=== PATIENT | male | born 1970 | race Two or more races ===

== ENCOUNTER 2016-12-16 10:19 | Emergency (ER) | payer BC ==
[~2016-12-16] VITALS: Ht 180.3 cm; Wt 117.0 kg
[~2016-12-16 10:19] MED LIST: CLON1 PO; LORT5TAB PO; MELO15TA2 PO
[2016-12-16 10:23] VITALS: BP 139/80; PULSE 90; RESP 16; TEMP 98; O2SAT 95
--- NOTE | 2016-12-16 10:53 | PD ---
HPI Chief Complaint: Chest Pain Time Seen by Provider: 10:40 Travel History International Travel<30 days: No Contact w/Intl Traveler<30days: No Traveled to known affect area: No History of Present Illness HPI This patient complains of chest pain. Duration 2 days. Severity is moderate. Feels a pressure in the center of his chest. It is not exertional. He has no cardiac disease never been stress tested. He is a cigarette smoker. No alleviating factors. PFSH Past Medical History Hx Anticoagulant Therapy: No Anxiety: Yes Depression: Yes Diabetes: No Diminished Hearing: No Tetanus Vaccination: Unknown Past Surgical History Abdominal Surgery: Yes (COLOSTOMY PLACEMENT LAST DECEMBER 01, 2009) Social History Alcohol Use: Yes (SOC) Tobacco Use: Yes (07/25 PPD) Substance Use: Yes Allergies-Medications (Allergen,Severity, Reaction): Coded Allergies: Sulfa (Unverified Allergy, Unknown, Unknown, 12/16/16) Reported Meds & Prescriptions Reported Meds & Active Scripts Active No Active Prescriptions or Reported Medications Review of Systems General / Constitutional: No: Fever Eyes: No: Visual changes HENT: No: Headaches Cardiovascular: Positive: Chest Pain or Discomfort Respiratory: No: Shortness of Breath Gastrointestinal: No: Abdominal Pain Genitourinary: No: Dysuria Musculoskeletal: No: Pain Skin: No Rash Neurologic: No: Weakness Psychiatric: No: Depression Endocrine: No: Polydipsia Hematologic/Lymphatic: No: Easy Bruising Physical Exam Narrative GENERAL: Well-nourished, well-developed patient in no apparent distress. SKIN: Focused skin assessment reveals no rash and nodules. Skin is Warm and dry. HEAD: Atraumatic. Normocephalic. EYES: Pupils equal and round. No scleral icterus. No injection or drainage. ENT: No nasal bleeding or discharge. Mucous membranes pink and moist. NECK: Trachea midline. No JVD. CARDIOVASCULAR: Regular rate and rhythm. No murmur appreciated. RESPIRATORY: No accessory muscle use. Clear to auscultation. Breath sounds equal bilaterally. GASTROINTESTINAL: Abdomen soft, non-tender, nondistended. Hepatic and splenic margins not palpable. MUSCULOSKELETAL: No obvious deformities. No clubbing. No cyanosis. No edema. NEUROLOGICAL: Awake and alert. No obvious cranial nerve deficits. Motor grossly within normal limits. Normal speech. PSYCHIATRIC: Appropriate mood and affect; insight and judgment normal. Data Data Last Documented VS Vital Signs Date Time Temp Pulse Resp B/P Pulse Ox O2 Delivery O2 Flow Rate FiO2 12/16/16 10:40 96 Nasal Cannula 2 12/16/16 10:37 16 12/16/16 10:23 98.0 90 139/80 Orders Ckmb (Isoenzyme) Profile (12/16/16 10:49) Troponin I (12/16/16 10:49) Complete Blood Count With Diff (12/16/16 10:49) Basic Metabolic Panel (Bmp) (12/16/16 10:49) Prothrombin Time / Inr (Pt) (12/16/16 10:49) Act Partial Throm Time (Ptt) (12/16/16 10:49) Chest, Single Ap (12/16/16 ) Aspirin (Aspirin) (12/17/16 09:00) Aspirin (Aspirin) (12/16/16 11:15) CKMB (12/16/16 10:45) CKMB% (12/16/16 10:45) Labs Laboratory Tests Test 12/16/16 10:45 White Blood Count 11.8 TH/MM3 Red Blood Count 5.43 MIL/MM3 Hemoglobin 14.4 GM/DL Hematocrit 44.3 % Mean Corpuscular Volume 81.6 FL Mean Corpuscular Hemoglobin 26.6 PG Mean Corpuscular Hemoglobin 32.6 % Concent Red Cell Distribution Width 13.9 % Platelet Count 228 TH/MM3 Mean Platelet Volume 11.6 FL Neutrophils (%) (Auto) 58.0 % Lymphocytes (%) (Auto) 32.0 % Monocytes (%) (Auto) 6.2 % Eosinophils (%) (Auto) 3.1 % Basophils (%) (Auto) 0.7 % Neutrophils # (Auto) 6.8 TH/MM3 Lymphocytes # (Auto) 3.8 TH/MM3 Monocytes # (Auto) 0.7 TH/MM3 Eosinophils # (Auto) 0.4 TH/MM3 Basophils # (Auto) 0.1 TH/MM3 CBC Comment DIFF FINAL Differential Comment Prothrombin Time 10.0 SEC Prothromb Time International 0.9 RATIO Ratio Activated Partial 27.7 SEC Thromboplast Time Sodium Level 140 MEQ/L Potassium Level 4.0 MEQ/L Chloride Level 105 MEQ/L Carbon Dioxide Level 27.4 MEQ/L Anion Gap 8 MEQ/L Blood Urea Nitrogen 16 MG/DL Creatinine 0.89 MG/DL Estimat Glomerular Filtration 92 ML/MIN Rate Random Glucose 122 MG/DL Calcium Level 8.6 MG/DL Total Creatine Kinase 479 U/L Creatine Kinase MB 2.0 NG/ML Creatine Kinase MB % 0.4 % Troponin I LESS THAN 0.02 NG/ML MDM Medical Decision Making Medical Screen Exam Complete: Yes Emergency Medical Condition: Yes Medical Record Reviewed: Yes Differential Diagnosis Differential diagnosis includes AR, angina, pericarditis, pleurisy, GERD, anxiety. Narrative Course I have reviewed the patient's electronic medical record. Patient was here last 2013 with overdose IV placed I reviewed the EKG which is normal I reviewed the chest x-ray which shows some atelectasis but no emergent findings Extended cardiac monitoring shows sinus rhythm without ectopy CBC is normal Metabolic profile is normal CK shows a normal MB percent was slightly elevated total CK Troponin is normal Coagulation studies are normal I gave him an aspirin Had a lengthy discussion with the patient. I recommended observation the chest pain center to rule out cardiac cause of his symptoms. He is going to decline after much deliberation. I answered his questions and I advised him to return if he worsens or changes his mind. He will sign out AGAINST MEDICAL ADVICE Diagnosis Primary Impression: Chest pain in adult Scripts No Active Prescriptions or Reported Meds Disposition: 07 AGAINST MEDICAL ADVICE Michael Montez MD December 16, 2016 10:53
[2016-12-16 11:04] LABS: AUTOMATED NEUTROPHIL # 6.8 TH/MM3 (1.8-7.7); BASOPHIL # 0.1 TH/MM3 (0-0.2); BASOPHIL % 0.7 % (0.0-2.0); EOSINOPHIL # 0.4 TH/MM3 (0-0.4); EOSINOPHIL % 3.1 % (0.0-4.0); HEMATOCRIT 44.3 % (39.0-51.0); LYMPHOCYTE # 3.8 TH/MM3 (1.0-4.8); MEAN CELL VOLUME 81.6 FL (80.0-100.0); MEAN CORPUSCULAR HEMOGLOBIN 26.6 PG (27.0-34.0); MEAN CORPUSCULAR HGB CONC 32.6 % (32.0-36.0); MONO % 6.2 % (0.0-8.0); PLATELET COUNT 228 TH/MM3 (150-450); RED BLOOD COUNT 5.43 MIL/MM3 (4.50-5.90); RED CELL DISTRIBUTION WIDTH 13.9 % (11.6-17.2); WHITE BLOOD COUNT 11.8 TH/MM3 (4.0-11.0)
[2016-12-16 11:05] LABS: HEMO FLAGS DIFF FINAL
--- NOTE | 2016-12-16 11:12 | RADHPO ---
EXAM DATE/TIME: 12/16/2016 11:02 [facility] COMPARISON: CHEST SINGLE AP, March 11, 2014, 13:50. INDICATIONS : Chest pain MEDICAL HISTORY : None. SURGICAL HISTORY : Colostomy. ENCOUNTER: Initial ACUITY: 3 days PAIN SCORE: 7/10 LOCATION: Bilateral chest FINDINGS: AP view the chest demonstrates a normal-sized cardiac silhouette. Lungs are underinflated and there i s mild opacity at the lung bases. No effusion or pneumothorax is visualized. Bones and soft tissues d emonstrate no acute finding. CONCLUSION: Underinflated examination with mild opacity at the bases representing most likely atelectasis. Jeremy West MD on December 16, 2016 at 11:09 Board Certified Radiologist. This report was verified electronically.
[2016-12-16 11:13] LABS: CHLORIDE 105 MEQ/L (98-107); SODIUM (NA) 140 MEQ/L (136-145)
[2016-12-16] MEDS ORDERED: ASPIRIN 325 MG TAB PO ONE (11:15)
[2016-12-16 11:16] LABS: ANION GAP 8 MEQ/L (5-15); APTT (PATIENT) 27.7 SEC (24.3-30.1); BICARBONATE 27.4 MEQ/L (21.0-32.0); BLOOD UREA NITROGEN 16 MG/DL (7-18); INTERNATIONAL NORMALIZED RATIO 0.9 RATIO
[2016-12-16 11:20] LABS: GLOMERULAR FILTRATION RATE 92 ML/MIN (>89)
[2016-12-16 11:23] LABS: CREATINE KINASE 479 U/L (39-308)
[2016-12-16 11:41] VITALS: BP 136/88
--- NOTE | 2016-12-16 15:04 | EKG ---
Date Performed: 12/16/2016 Time Performed: 10:19:40 PTAGE: 46 years EKG: Sinus rhythm Normal ECG NO SIGNIFICANT CHANGE FROM PRIOR ELECTROCARDIOGRAM. PREVIOUS TRACING : 03/11/2014 13.46 DOCTOR: Faheem Khan Interpretating Date/Time 12/16/2016 15:01:58
[2016-12-17] MEDS ORDERED: ASPIRIN 325 MG TAB PO SCH (09:00)
== END 2016-12-16 11:45 | disposition left against medical advice (07) ==
LOC: PHED 10:19
DX: R07.9 Chest pain, unspecified (principal); F17.210 Nicotine dependence, cigarettes, uncomplicated; Z93.3 Colostomy status
CPT/HCPCS: 71010; 80048; 82550; 82552; 84484; 85025; 85610; 85730; 93005; 99284